=== PATIENT | male | born 1990 | race Caucasian/White ===

== ENCOUNTER 2019-01-02 21:07 | Emergency (ER) | payer SELFPAY ==
[~2019-01-02] VITALS: Ht 175.3 cm; Wt 69.9 kg
[~2019-01-02 21:07] MED LIST: DIAZ5TAB PO; NAPR-985 PO
[2019-01-02 21:34] VITALS: BP 118/59; PULSE 60; RESP 16; Ht 175.3 cm; Wt 69.9 kg
[2019-01-02] MEDS ORDERED: KETOROLAC 30 MG INJ IM STA (23:42)
[2019-01-03] MEDS ORDERED: DIAZEPAM 5 MG TAB PO ONE
== END 2019-01-03 01:20 | disposition home or self-care (01) ==
LOC: FTE 21:07
DX: M62.830 Muscle spasm of back (principal)
CPT/HCPCS: 96372; 99284; J1885